=== PATIENT | male | born 1960 | race American Indian/Alaskan Native ===

== ENCOUNTER 2016-12-28 21:48 | Emergency (ER) | payer OTHER ==
[2016-12-29] MEDS ORDERED: ROBITUSSIN DM PO ONE (00:13)
[2016-12-29] MEDS ORDERED: DUONEB 0.5 MG-3 MG/3 ML SOLN IH ONE (00:13)
[2016-12-29] MEDS ORDERED: PEPCID PO ONE (00:13)
[2016-12-29] MEDS ORDERED: MOTRIN PO ONE (00:13)
--- NOTE | 2016-12-29 01:59 | Emergency Department Report ---
- General Chief Complaint: Fever Stated Complaint: FEVER/DIZZINESS Time Seen by Provider: 12/29/16 00:12 Source: patient Mode of arrival: Ambulatory Limitations: No Limitations - History of Present Illness Initial Comments: 56M PMH Asthma p/w c/o x4 days of fever, productive cough, mild SOB with cough. Patient denies any nausea or vomiting. Denies any chest pain or palpitations. Patient states that his is sick with similar symptoms and was recently treated for community-acquired pneumonia. Patient is speaking in full sentences no stridor no audible wheezing patient is awake alert and oriented 3. Complaining of subjective fever chills primarily coug. Patient denies any smoking. Denies any recent travel. MD Complaint: fever, cough Onset/Timin -: days(s) Severity: moderate Improves With: OTC cold medicine Context: sick contacts - Related Data Previous Rx's Medication Instructions Recorded Last Taken Type Acetaminophen/Codeine 1 - 2 tab PO Q6H PRN #25 tab 10/09/14 Unknown Rx [Acetaminophen-Codeine #3 TAB] Cyclobenzaprine [Flexeril 10 MG 10 mg PO TID PRN #20 tablet 10/09/14 Unknown Rx TAB] Prednisone [Prednisone 10 mg 10 mg PO .TAPER #1 tab.ds.pk 10/09/14 Unknown Rx (6-Day Pack, 21 Tabs)] ALBUTEROL Inhaler [ProAir HFA 1 puff IH Q4H PRN #1 inha 12/29/16 Unknown Rx Inhaler] Azithromycin [Zithromax Z-ISAAC] 250 mg PO QDAY #6 tablet 12/29/16 Unknown Rx Phenylephrine/Dm/Acetaminop/GG 10 ml PO Q6H PRN #1 liquid 12/29/16 Unknown Rx [Mucinex Hvgb-Nqm-Walqdapxxh Lq] Allergies Allergy/AdvReac Type Severity Reaction Status Date / Time apple Allergy Swelling Verified 10/09/14 11:39 [place] Allergy Swelling Verified 10/09/14 11:39 grape Allergy Swelling Verified 10/09/14 11:39 orange flavor Allergy Swelling Verified 10/09/14 11:39 grapefruit AdvReac Unknown Verified 10/09/14 11:39 ED Review of Systems ROS: Stated complaint: FEVER/DIZZINESS Other details as noted in HPI Constitutional: chills, fever Eyes: denies: eye pain, eye discharge, vision change ENT: denies: ear pain, throat pain Respiratory: cough. denies: shortness of breath, wheezing Cardiovascular: denies: chest pain, palpitations Endocrine: no symptoms reported Gastrointestinal: denies: abdominal pain, nausea, diarrhea Genitourinary: denies: urgency, dysuria Musculoskeletal: denies: back pain, joint swelling, arthralgia Skin: denies: rash, lesions Neurological: denies: headache, weakness, paresthesias Psychiatric: denies: anxiety, depression Hematological/Lymphatic: denies: easy bleeding, easy bruising ED Past Medical Hx - Past Medical History Previous Medical History?: Yes Hx Hypertension: Yes Hx GERD: Yes Hx Asthma: Yes Additional medical history: sleep apnea - Surgical History Past Surgical History?: Yes Hx Appendectomy: Yes Additional Surgical History: optical surgery, sinus deviation correction, left knee surgery - Social History Smoking Status: Never Smoker Substance Use Type: None - Medications Home Medications: Home Medications Medication Instructions Recorded Confirmed Last Taken Type Acetaminophen/Codeine 1 - 2 tab PO Q6H PRN #25 tab 10/09/14 Unknown Rx [Acetaminophen-Codeine #3 TAB] Cyclobenzaprine [Flexeril 10 MG 10 mg PO TID PRN #20 tablet 10/09/14 Unknown Rx TAB] Prednisone [Prednisone 10 mg 10 mg PO .TAPER #1 tab.ds.pk 10/09/14 Unknown Rx (6-Day Pack, 21 Tabs)] ALBUTEROL Inhaler [ProAir HFA 1 puff IH Q4H PRN #1 inha 12/29/16 Unknown Rx Inhaler] Azithromycin [Zithromax Z-ISAAC] 250 mg PO QDAY #6 tablet 12/29/16 Unknown Rx Phenylephrine/Dm/Acetaminop/GG 10 ml PO Q6H PRN #1 liquid 12/29/16 Unknown Rx [Mucinex Omri-Wbl-Mgcbplpwmj Lq] ED Physical Exam - General Limitations: No Limitations General appearance: alert, in no apparent distress - Head Head exam: Present: atraumatic, normocephalic - Eye Eye exam: Present: normal appearance, PERRL, EOMI - ENT ENT exam: Present: mucous membranes moist - Neck Neck exam: Present: normal inspection - Respiratory Respiratory exam: Present: rhonchi (slight rhonchi left lung field). Absent: respiratory distress - Cardiovascular Cardiovascular Exam: Present: regular rate, normal rhythm. Absent: systolic murmur, diastolic murmur, rubs, gallop - GI/Abdominal GI/Abdominal exam: Present: soft, normal bowel sounds - Rectal Rectal exam: Present: deferred - Extremities Exam Extremities exam: Present: normal inspection, full ROM - Back Exam Back exam: Present: normal inspection - Neurological Exam Neurological exam: Present: alert, oriented X3 - Psychiatric Psychiatric exam: Present: normal affect, normal mood - Skin Skin exam: Present: warm, dry, intact, normal color. Absent: rash ED Course Vital Signs 12/28/16 12/29/16 21:54 00:59 Temperature 99.8 F H Pulse Rate 107 H Respiratory 20 20 Rate Blood Pressure 152/87 Blood Pressure 152/87 [Left] O2 Sat by Pulse 100 Oximetry ED Medical Decision Making - Medical Decision Making A/P: acute bronchitis, reactive airway disease 1-as patient was recently exposed to a person with community-acquired pneumonia I will empirically treat with azithromycin 2-flu swab sent 3-albuterol inhaler, Mucinex, Motrin when necessary, Fenesin DM when necessary 4-follow up with primary care doctor 5-I advised patient to return if fever and chills worsen if he experiences any chest pain or palpitations. Patient feels better after one nebulizer treatment , states her breathing is much smooth. Critical care attestation.: If time is entered above; I have spent that time in minutes in the direct care of this critically ill patient, excluding procedure time. ED Disposition Clinical Impression: Acute bronchitis Qualifiers: Bronchitis organism: unspecified organism Qualified Code(s): J20.9 - Acute bronchitis, unspecified Disposition: DISCHARGED TO HOME OR SELFCARE Is pt being admited?: No Does the pt Need Aspirin: No Condition: Stable Instructions: Acute Bronchitis (ED) Prescriptions: ALBUTEROL Inhaler [ProAir HFA Inhaler] 1 puff IH Q4H PRN #1 inha PRN Reason: Wheezing Azithromycin [Zithromax Z-ISAAC] 250 mg PO QDAY #6 tablet Phenylephrine/Dm/Acetaminop/GG [Mucinex Tgny-Zzu-Ojweswvuso Lq] 10 ml PO Q6H PRN #1 liquid PRN Reason: Cough Referrals: DORON ARRINGTON MD [Staff Physician] - 3-5 Days [facility] [Outside] - 3-5 Days Forms: Work/School Release Form(ED) Time of Disposition: 01:59
[2016-12-29 02:29] VITALS: BP 139/85
--- NOTE | 2016-12-29 09:22 | XRay Report ---
CHEST 2 VIEWS INDICATION: Shortness of breath, productive cough. COMPARISON: None similar at this institution. FINDINGS: PA and lateral chest radiographs demonstrate normal cardiomediastinal silhouette. Clear lungs. Multilevel thoracic spine predominantly anterior and right lateral osteophytes. CONCLUSION: No acute disease in the chest. Thank you for the opportunity to participate in this patient's care.
== END 2016-12-29 02:31 | disposition home or self-care (01) ==
LOC: ED 21:48
DX: J20.9 Acute bronchitis, unspecified (principal); I10 Essential (primary) hypertension; K21.9 Gastro-esophageal reflux disease without esophagitis; J45.909 Unspecified asthma, uncomplicated
CPT/HCPCS: 71020; 87400; 94640; 99283

== ENCOUNTER 2017-01-27 20:18 | Emergency (ER) | payer OTHER ==
[2017-01-27 23:51] LABS: Bilirubin,Urine NEG (Negative); Blood,Urine NEG (Negative); Ketones,Urine NEG (Negative); Leukocyte Esterase,Urine NEG (Negative); Nitrite,Urine NEG (Negative); Urobilinogen,Urine < 2.0 mg/dL (<2.0)
[2017-01-28] MEDS ORDERED: NORCO 5/325 PO ONE ×2 (00:20→00:22)
[2017-01-28] MEDS ORDERED: DECADRON IM ONE (03:26)
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
--- NOTE | 2017-01-28 05:17 | Cat Scan Report ---
FINAL REPORT PROCEDURE: CT LUMBAR SPINE WO CON TECHNIQUE: Computerized axial tomography of the lumbar spine was performed from T12 to the sacrum without contrast material. HISTORY: sever lower back pain COMPARISON: No prior studies are available for comparison. FINDINGS: There is straightening of the lumbar spine. There is no fracture or malalignment. There is mild loss of disc height at L2-L3 with bilateral facet hypertrophy and thickening of the ligamentum flavum. There is left lateral osteophytic ridging. There is mild spinal stenosis. There is severe left foraminal stenosis. There is moderate loss of disc height at L3-L4 along with bilateral facet hypertrophy, broad-based disc bulging and thickening of the ligamentum flavum causing moderate spinal stenosis and severe bilateral foraminal stenosis. There is significant loss of disc height at L4-5. There is a chronic broad-based disc bulge with focal ossification of the posterior longitudinal ligament causing moderate spinal stenosis and severe bilateral lateral recess stenosis worse on the left. There is bilateral facet hypertrophy. There is severe bilateral foraminal stenosis worse on the left. Remainder of the intervertebral disc spaces are within normal limits. The sacrum and sacroiliac joints are intact. The paraspinal soft tissues are unremarkable. IMPRESSION: There are no fractures or malalignments. There are chronic degenerative changes as described detail above at L2-L3 through L5-4 L5. There is severe left foraminal stenosis at L2-L3. There is moderate spinal stenosis and severe bilateral foraminal stenosis at L3-L4. There is severe bilateral lateral recess stenosis and bilateral foraminal stenosis at L4-5.
[2017-01-28 06:24] VITALS: BP 165/71
--- NOTE | 2017-01-28 10:31 | XRay Report ---
AP and lateral of the lumbar spine. Findings: There is severe narrowing of the disc spaces at L4-5 and L5-S1. Vertebral body heights are well-maintained and alignment is normal. The pedicles are intact. No acute findings are seen. Impression: Severe degenerative disc disease at L4-5 and L5-S1.
== END 2017-01-28 06:00 | disposition home or self-care (01) ==
LOC: ED 20:18
DX: M54.16 Radiculopathy, lumbar region (principal); M48.06 Spinal stenosis, lumbar region; G89.29 Other chronic pain; K21.9 Gastro-esophageal reflux disease without esophagitis; J45.909 Unspecified asthma, uncomplicated; I10 Essential (primary) hypertension; G47.30 Sleep apnea, unspecified; Z91.018 Allergy to other foods
CPT/HCPCS: 72100; 72131; 81001; 96372; 99284; J1100